=== PATIENT | male | born 1970 | race Caucasian/White ===

== ENCOUNTER → 2022-04-16 12:16 | Outpatient (BNVA) | payer OTHER, SELFPAY | PROVIDERS: Visit Provider Family Medicine | DX: R35.0 Frequency of micturition (principal); N40.0 Benign prostatic hyperplasia without lower urinary tract symptoms; G35 Multiple sclerosis; I10 Essential (primary) hypertension | CPT/HCPCS: 80053; 80061; 84153 ==

== ENCOUNTER 2022-05-20 07:33 | Outpatient (CLI) | payer OTHER, SELFPAY ==
[2022-05-20 07:55] LABS: Basophils % 0.7 %; Eosinophils # 0.1 10^3/uL (0.0-0.8); Eosinophils % 1.7 %; Hematocrit 46.7 % (42.0-52.0); Lymphocytes # 1.1 10^3/uL (0.8-4.8); Lymphocytes % 27.3 %; Mean Corpuscular HGB Conc 34.3 g/dL (30.0-36.0); Mean Corpuscular Hemoglobin 32.9 pg (28.0-34.0); Mean Corpuscular Volume 95.9 fl (80-94); Mean Platelet Volume 9.9 fL (7.4-10.4); Monocytes # 0.3 10^3/uL (0.2-0.9); Monocytes % 6.6 %; Neutrophils # 2.61 10^3/uL (1.8-7.7); Neutrophils % 63.5 %; Nucleated Red Blood Cells % 0 %; Platelet Count 285 10^3/cmm (130-400); Red Blood Count 4.87 10^6/uL (4.1-5.3); Red Cell Distribution Width 13.1 % (12.1-15.1); White Blood Count 4.1 10^3/uL (4.0-10.0)
[2022-05-20 08:30] LABS: Alanine Aminotransferase 17 U/L (0-41); Albumin Level 4.4 g/dL (3.5-5.2); Alkaline Phosphatase 86 IU/L (40-130); Anion Gap 17.1 (5-19); Aspartate Amino Transferase 11 U/L (0-40); Blood Urea Nitrogen 12 mg/dL (6-20); Calcium 9.1 mg/dL (8.5-10.5); Carbon Dioxide 23 mmol/L (22-29); Chloride 104 mmol/L (98-107); Globulin 2.3 g/dL (1.3-4.6); Glomerular Filtration Rate 174.6 mL/min (90-130); Glucose 117 mg/dL (65-115); Osmolality Calculated 291 mOsm/kg (285-295); Potassium 4.1 mmol/L (3.5-5.1); Sodium 140 mmol/L (136-145); Total Bilirubin 0.3 mg/dL (0.15-1.2); Total Protein 6.7 g/dL (6.6-8.7)
== END 2022-05-20 07:34 | disposition home or self-care (01) ==
PROVIDERS: Visit Provider Specialist
DX: R20.0 Anesthesia of skin (principal); R20.2 Paresthesia of skin
CPT/HCPCS: 36415; 80053; 85025

== ENCOUNTER → 2022-11-09 08:22 | Outpatient (BNVA) | payer OTHER, SELFPAY | PROVIDERS: PCP Family Medicine; Visit Provider Specialist | DX: R20.0 Anesthesia of skin (principal); R20.2 Paresthesia of skin; G35 Multiple sclerosis | CPT/HCPCS: 36415; 84450; 84460; 85025 ==

== ENCOUNTER → 2023-05-13 14:06 | Outpatient (BNVA) | payer OTHER, SELFPAY | PROVIDERS: PCP Family Medicine; Visit Provider Family Medicine | DX: Z00.00 Encounter for general adult medical examination without abnormal findings (principal) | CPT/HCPCS: 80053; 80061; 82306; 84153; 85025 ==

== ENCOUNTER 2024-01-24 15:53 | Outpatient (CLI) | payer OTHER, SELFPAY ==
--- NOTE | 2024-01-24 15:55 | XRR_ITS ---
PROCEDURE INFORMATION: Exam: XR Left Ribs Exam date and time: 01/24/2024 4:05 PM Age: 53 years old Clinical indication: Other: Rib pain; Additional info: Left side rib pain x 2 weeks TECHNIQUE: Imaging protocol: Radiologic exam of the left ribs. Views: 2 views. COMPARISON: MR thoracic spin wo con* [id number] 01/06/2019 2:15 PM FINDINGS: Bones/joints: Normal. Soft tissues: Normal. XR/XR ribs LT 2V* [id number] IMPRESSION: No acute findings.
== END 2024-01-24 15:54 | disposition home or self-care (01) ==
LOC: RAD 15:54
PROVIDERS: PCP Family Medicine; Visit Provider Family Medicine
DX: R07.81 Pleurodynia (principal)
CPT/HCPCS: 71100

== ENCOUNTER → 2024-05-10 09:39 | Outpatient (BNVA) | payer OTHER, SELFPAY | PROVIDERS: PCP Family Medicine; Visit Provider Specialist | DX: R20.0 Anesthesia of skin (principal); R20.2 Paresthesia of skin; G35 Multiple sclerosis; Z00.00 Encounter for general adult medical examination without abnormal findings; R03.0 Elevated blood-pressure reading, without diagnosis of hypertension | CPT/HCPCS: 36415; 80053; 84153; 84443; 85025 ==

== ENCOUNTER 2024-09-05 06:16 | Day surgery (SDC) | payer OTHER, SELFPAY ==
[2024-09-05 06:28] VITALS: BP 149/98; PULSE 72; RESP 17; TEMP 36.6; O2SAT 98; BMI 36.5
[2024-09-05] MEDS: sodium chloride 0.9% 1,000 ML 30 ML IV (06:35)
--- NOTE | 2024-09-05 06:48 | ANES.PREANE2 ---
Pre-Anesthetic Assessment Height/Weight: Height 1.73 m Weight 108.862 kg Temp Pulse Resp BP Pulse Ox O2 Del Method 97.9 F 72 17 149/98 98 Room Air 09/05/24 06:28 09/05/24 06:28 09/05/24 06:28 09/05/24 06:28 09/05/24 06:28 09/05/24 06:28 Preop Diagnosis: screening Operation Date: 09/05/24 07:30 Proposed Procedures p Colonoscopy 19251, G0105, Z12.11(Not Applicable) - Dennis Stone MD Familial anesthetic complications: none Was Beta Claudia taken within 24 hours: N/A Was Clonidine taken within 24 hours: N/A Last intake: Intake Last Liquid Date 09/04/24 Last Liquid Time 21:00 Last Solid Date 09/03/24 Last Solid Time 18:00 Social Alcohol and Tobacco Chews daily, whiskey on the weekends Exam alert, oriented x 3, clear to auscultation bilaterally and regular rate & rhythm Airway Submandibular: within normal limits Cervical ROM: within normal limits Mallampati: Class II Dentition: full History/ROS No significant history except as noted and No significant complaints Pulmonary None reported CV/HEM Hypertension None reported Hepatic None reported GI Gastroesophageal Reflux Disease Metabolic None reported Musc/skel None reported Neuropsych None reported Anesthetic Plan ASA status: 2 Anesthesia: MAC Risk of > 500 ml blood loss (7ml/kg in children): No Medications/Allergies Home Medications Medication Instructions Recorded Confirmed Last Taken Type cholecalciferol (vitamin D3) 50 50 mcg PO DAILY 02/10/22 09/05/24 09/03/24 History mcg (2,000 unit) capsule omeprazole 20 mg capsule,delayed 20 mg PO DAILY 02/10/22 09/05/24 09/05/24 History release amlodipine 5 mg tablet 5 mg PO DAILY 08/31/24 09/05/24 09/05/24 History dimethyl fumarate 240 mg 240 mg PO BID 08/31/24 09/05/24 09/05/24 History capsule,delayed release (Tecfidera) diphenhydramine HCl 25 mg capsule 25 mg PO DAILY 08/31/24 09/05/24 09/05/24 History (Benadryl) Allergies Allergy/AdvReac Type Severity Reaction Status Date / Time No Known Allergies Allergy Verified 08/31/24 10:10 Current Medications Generic Name Dose Route Start Last Admin Trade Name Freq PRN Reason Stop Dose Admin Sodium Chloride 1,000 mls @ 30 mls/hr 09/05/24 06:30 09/05/24 06:35 Sodium Chloride 0.9% IV 30 mls/hr .Q24H KERRY Administration PFSH Anesthesia Family History (Updated 07/14/24 @ 09:05 by MARY Christianson) Father Hypertension Mother Hypertension Social History Smoking and tobacco/nicotine status: unknown if used tobacco/nicotine Data Anesthesia Cardiac Studies: No Data to Display
--- NOTE | 2024-09-05 07:01 | W.PM.OPSFHP ---
Same Day Surgery H&P Indication for Procedure/HPI DATE OF PROCEDURE: September 05, 2024 CHIEF COMPLAINT/INDICATIONFOR SURGICAL PROCEDURE: screening colonoscopy PREOP DIAGNOSIS: screening PLANNED PROCEDURE: Operation Date: 09/05/24 07:30 Proposed Procedures p Colonoscopy 86624, G0105, Z12.11(Not Applicable) - Dennis Stone MD Medications/Allergies* Home Medications Medication Instructions Recorded Confirmed Type cholecalciferol (vitamin D3) 50 50 mcg PO DAILY 02/10/22 09/05/24 History mcg (2,000 unit) capsule omeprazole 20 mg capsule,delayed 20 mg PO DAILY 02/10/22 09/05/24 History release amlodipine 5 mg tablet 5 mg PO DAILY 08/31/24 09/05/24 History dimethyl fumarate 240 mg 240 mg PO BID 08/31/24 09/05/24 History capsule,delayed release (Tecfidera) diphenhydramine HCl 25 mg capsule 25 mg PO DAILY 08/31/24 09/05/24 History (Benadryl) Allergies/Adverse Reactions Allergy/AdvReac Type Severity Reaction Status Date / Time No Known Allergies Allergy Verified 08/31/24 10:10 Current Medications: Generic Name Dose Route Start Last Admin Trade Name Freq PRN Reason Stop Dose Admin Sodium Chloride 1,000 mls @ 30 mls/hr 09/05/24 06:30 09/05/24 06:35 Sodium Chloride 0.9% IV 30 mls/hr .Q24H KERRY Administration Pertinent History/Comorbid Conditions* Family History (Updated 07/14/24 @ 09:05 by MARY Christianson) Hypertension Father Mother Social History Smoking and tobacco/nicotine status: unknown if used tobacco/nicotine Pertinent Exam Findings alert, oriented x 3, clear to auscultation bilaterally, regular rate & rhythm and procedure specific exam findings Abdomen soft, nt, nd Recommendations Surgery/Procedure today Coding Level of Care Code Acute Code for Chg Fwd
[2024-09-05 07:56] VITALS: BP 126/84; PULSE 73; RESP 18; TEMP 36.2; O2SAT 91
[2024-09-05 08:10] VITALS: BP 121/92; PULSE 63; RESP 18; O2SAT 96
--- NOTE | 2024-09-05 08:35 | ANE.PACU2 ---
Inpatient post-anesthesia follow up: Airway intact: Yes Vital signs: Temperature 97.2 F Pulse Rate 63 Respiratory Rate 18 Blood Pressure 121/92 Pulse Oximetry 96 Oxygen Delivery Me thod Room Air Oxygen Flow Rate Fraction of Inspir ed Oxygen Hydration adequate: Yes Nausea and vomiting: No Pain level: 1 Mental status: Baseline
== END 2024-09-05 08:35 | disposition home or self-care (01) ==
PROVIDERS: PCP Family Medicine; Visit Provider Student in an Organized Health Care Education/Training Program
PROC: 0DJD8ZZ Inspection of Lower Intestinal Tract, Via Natural or Artificial Opening Endoscopic (ICD-10-PCS; CPT 45378; principal; 2024-09-05 07:30)
DX: Z12.11 Encounter for screening for malignant neoplasm of colon (principal); K57.30 Diverticulosis of large intestine without perforation or abscess without bleeding; I10 Essential (primary) hypertension; K21.9 Gastro-esophageal reflux disease without esophagitis
CPT/HCPCS: 45378; J2704; J3490; J7030

== ENCOUNTER → 2025-05-08 07:54 | Outpatient (BNVA) | payer OTHER, SELFPAY | PROVIDERS: PCP Family Medicine; Visit Provider Family Medicine | DX: Z00.00 Encounter for general adult medical examination without abnormal findings (principal) | CPT/HCPCS: 80053; 80061; 84153; 84443; 85025 ==